=== PATIENT | female | born 1960 | race Caucasian/White ===

== ENCOUNTER 2017-11-14 08:24 | Day surgery (SDC) | payer BC ==
[~2017-11-14 08:24] MED LIST: ACETAMINOPHEN 1,000 MG/100 ML BTL IV ONE; CEFAZOLIN 2 Gram 2 GM/50 ML BAG IVPB ONE; FAMOTIDINE 20MG TABLET PO ONE; MECLIZINE 25 MG TABLET PO ONE; METOCLOPRAMIDE 10 MG TABLET PO ONE
[2017-11-14] MEDS ORDERED: METHYLPREDNISOLONE 40MG/VIAL IM ONE (08:25)
[2017-11-14] MEDS ORDERED: PROPOFOL 10 MG/ML VIAL IV ONE (08:25)
[2017-11-14] MEDS ORDERED: MIDAZOLAM HCL 2MG/2ML VIAL IV ONE (08:25)
[2017-11-14] MEDS ORDERED: LIDOCAINE 2% MDV (20MG/ML) 20ML VIAL IV ONE (08:25)
[2017-11-14] MEDS ORDERED: BUPIVACAINE 0.75% W/EPI MPF 30ML VIAL IVP ONE (08:25)
[2017-11-14] MEDS ORDERED: KETOROLAC 30 MG/ML VIAL IVP ONE (08:25)
[2017-11-14] MEDS ORDERED: MORPHINE SULFATE PF 10MG/10ML VIAL IV ONE (08:25)
[2017-11-14] MEDS ORDERED: NALOXONE 0.4 MG/1 ML VIAL IVP ONE (08:25)
[2017-11-14] MEDS ORDERED: SUFENTANIL CITRATE 50 MCG/ML AMPUL IV ONE (08:25)
[2017-11-14] MEDS ORDERED: ONDANSETRON HCL IV 4 MG/2 ML VIAL IVP ONE (08:25)
[2017-11-14] MEDS ORDERED: EPINEPHRINE 1 MG/ML AMPUL SQ ONE (08:25)
--- NOTE | 2017-11-14 20:55 | Operative Note ---
DATE: 11/14/2017 PREOPERATIVE DIAGNOSIS: TEAR OF THE ROTATOR CUFF ON THE RIGHT. POSTOPERATIVE DIAGNOSES: 1. SMALL TEAR OF THE RIGHT ROTATOR CUFF, CHRONIC. 2. PROFOUND RIGHT SHOULDER EXTERNAL IMPINGEMENT. 3. COMPLEX GLENOHUMERAL LABRAL TEAR. 4. ARTHROSIS RIGHT DISTAL CLAVICLE. PROCEDURE: 1. OPEN REPAIR OF A RIGHT SHOULDER ROTATOR CUFF TEAR. 2. RIGHT SHOULDER ARTHROSCOPY WITH INTERARTICULAR DEBRIDEMENT. 3. RIGHT SHOULDER OPEN ACROMIOPLASTY, CA LIGAMENT RESECTION, SUBACROMIAL BURSECTOMY. 4. RIGHT SHOULDER DISTAL CLAVICLE RESECTION. STAFF SURGEON: VALENTINA PIERCE M.D. ANESTHESIA: GENERAL. PREPARATION: CHLORAPREP. INDIVIDUAL CONSIDERATIONS: NONE. PROCEDURE: The patient was taken to the Operating Room and placed supine on the operating table. She had a successful induction of a general anesthetic. She was then placed in a semi-seated beach chair position and her right arm and shoulder were prepped and draped in the usual fashion. The patient had a posterior portal identified for arthroscopy. The skin was infiltrated with 0.5% Marcaine with Epinephrine prior. An #18 gauge spinal needle was easily placed in the joint and the joint was inflated with normal saline. A stab wound was made and a blunt tip trocar for the scope was placed inside the joint and the joint was inflated with normal saline. An anterior accessory portal was then made just inferior to the intact long head of the biceps tendon in a retrograde fashion with a Wissinger qi and the joint was irrigated out. The patient had an obviously small pinhole tear of the rotator cuff at the supraspinatus. The long head was intact. The glenohumeral joint was normal. Subscapularis was normal. No loose bodies. No significant synovitis but she did have fraying of the labrum superiorly and anteriorly and this was debrided with shaver. After irrigation, the portals were closed with case. The patient had an anterior approach to the subacromial space and distal clavicle. The skin was infiltrated with 0.5% Marcaine with Epinephrine prior. An anterior deltoid interval was developed. Care was taken not to split the deltoid more than about 4 cm distal to the anterior tip of the acromion to prevent injury to the axillary nerve. Once in the subacromial space, there was a thomas of fluid consistent with a tear. The deltoid was then taken subperiosteally off the anterior aspect of the downsloping acromion, over the top of the intact CA ligament, and off the anterior aspect of the degenerated distal clavicle. The CA ligament was removed with a Bovie. The distal clavicle was resected with an oscillating saw taking just under 1 cm. The patient had downsloping acromion. An anterior acromioplasty was performed taking about 7 or 8 mm tapering to wedge posteromedially to include the spurs at the AC joint. The undersurface was then smoothed with a rasp. A very thick bursa was removed with Lui and then I found the tear of the rotator cuff, which I saw arthroscopically. It turned out to be about 1 cm. This was debrided back with ease to bleeding tendon. The tuberosity insertion was roughed up with a bur and then #1 Ethibond sutures were placed in a retention fashion. The end of the tendon which was torn was drawn back into the roughed up trough through holes at the base and tied down to effect a near-anatomic repair. I put the shoulder through a full range of motion to ensure no further impingement. After irrigation, the deltoid was reattached to the remaining acromion with multiple interrupted #2 Vicryl going directly through the bony acromion. The periosteal cuff of the distal clavicle was closed with a running #1 Vicryl. The anterior deltoid interval was closed with a running #1 Vicryl. The subcu was closed in layers with 3-0 Plus Vicryl and the skin was closed with a running 3-0 Quill. 15 mL of 0.75% Marcaine with Epinephrine along with 4 mg of Morphine and 40 mg of Depo-Medrol were injected into the subacromial space and a sterile Bulkee compressive dressing and sling were applied. The patient tolerated the procedures well. Needle and sponge counts were correct, estimated blood loss was minimal, and she was taken back to Recovery in good condition. There were no complications. cc: Dr. Payam Wells JOB NUMBER: [id number] MTDD
== END 2017-11-14 14:20 | disposition home or self-care (01) ==
LOC: SUR 08:24
PROVIDERS: ATTEND Orthopaedic Surgery
DX: S46.011A Strain of muscle(s) and tendon(s) of the rotator cuff of right shoulder, initial encounter (principal); S43.432A Superior glenoid labrum lesion of left shoulder, initial encounter; M75.41 Impingement syndrome of right shoulder; W19.XXXA Unspecified fall, initial encounter
CPT/HCPCS: 29822; 23420; 23120; 00450; J1885; J2405; J0690; J3490; J0171; J1030; J2310